=== PATIENT | male | born 1950 | race Caucasian/White ===

== ENCOUNTER 2019-09-18 07:44 | Outpatient (CLI) | payer MEDICARE, OTHER ==
[2019-09-18 17:47] LABS: SARS-CoV-2 MS2 Positive; SARS-CoV-2 N Gene Negative; SARS-CoV-2 S Gene Negative; SARS-CoV-2 orf1ab Negative
== END 2019-09-18 07:45 | disposition home or self-care (01) ==
LOC: LABBT 07:44
PROVIDERS: ATTEND Ophthalmology Retina Specialist
DX: Z01.812 Encounter for preprocedural laboratory examination (principal); Z11.59 Encounter for screening for other viral diseases; H35.371 Puckering of macula, right eye
CPT/HCPCS: 87635; U0003

== ENCOUNTER 2019-09-20 07:11 | Day surgery (SDC) | payer MEDICARE, OTHER ==
[2019-09-18 12:32] VITALS: BMI 32.8
[~2019-09-20 07:11] MED LIST: Fluorouracil 100 MG, Enoxaparin Sodium 25 MG, EPINEPHrine 0.3 MG in Ophthalmic Irrigati... IRR SCH
[2019-09-20] MEDS ORDERED: Phenylephrine 2.5% Ophth Soln 5 ML BOT FS SCH (08:44)
[2019-09-20] MEDS ORDERED: Cyclopentolate 1% Opth Drop 2 ML BOT FS SCH (08:44)
[2019-09-20] MEDS ORDERED: Cyclopentolate 1% Opth Drop 2 ML BOT ONE (08:58)
[2019-09-20] MEDS ORDERED: Phenylephrine 2.5% Ophth Soln 5 ML BOT ONE (08:58)
[2019-09-20] MEDS ORDERED: PROPOFOL 20 ML ONE (10:55)
[2019-09-20] MEDS ORDERED: Fentanyl 100 MCG/2 ML VIAL ONE (10:55)
[2019-09-20] MEDS ORDERED: Midazolam HCl 2 mg/2 ml Vial ONE (10:57)
[2019-09-20] MEDS ORDERED: Lidocaine 1% PF 5 ML VIAL ONE ×2 (13:30)
[2019-09-20] MEDS ORDERED: PROPOFOL 200 MG/20 ML VIAL ONE (13:30)
[2019-09-20] MEDS ORDERED: Triamcinolone 40 MG/ML VIAL ONE (13:30)
[2019-09-20] MEDS ORDERED: Tobramycin/Dexamethasone Ophth Oint 3.5 GM TUBE ONE (13:30)
[2019-09-20] MEDS ORDERED: CEFAZOLIN 1 GM VIAL ONE (13:30)
[2019-09-20] MEDS ORDERED: Enoxaparin Sodium 30 MG/0.3 ML SYRINGE ONE (13:30)
--- NOTE | 2019-09-20 23:16 | OP ---
DATE OF PROCEDURE: 09/20/2019 PREOPERATIVE DIAGNOSIS: Epiretinal membrane, right eye. POSTOPERATIVE DIAGNOSIS: Epiretinal membrane, right eye. PROCEDURES PERFORMED: Pars plana vitrectomy and membrane peel, right eye. ANESTHESIA: Local with monitored anesthesia care. DESCRIPTION OF PROCEDURE: The patient was identified in the preoperative holding area. Appropriate informed consent for the planned surgical procedure on the right eye had been obtained. The patient was transported to the operative suite. Appropriate cardiopulmonary monitoring was established. The patient was prepped and draped in usual sterile manner for ophthalmic surgery in the right eye. Lid speculum was placed in the right eye. A 27-gauge trocars was placed supratemporally, inferotemporally, and supranasally. Infusion line was placed inferotemporally. Light pipe vitreous cutter inserted to the eye. Core vitrectomy was performed. All the edge of the epiretinal membrane was identified. This was elevated using end gripping forceps and peeled across the macula without complication. The periphery was inspected with indirect ophthalmoscopy and 7 to 8 spots of laser was placed in the periphery. Trocars removed. Eye was noted to retain pressure well. Retrobulbar Kenalog subconjunctival Ancef was placed. Antibiotic ointment was placed. Eye was patched and shielded. The patient was taken to the postop recovery unit in good condition, having suffered no immediate perioperative complications. The patient was instructed to keep patch shield on, avoid lifting or bending. Followup appointment with Dr. Negron. Job ID: [id number]
== END 2019-09-20 12:22 | disposition home or self-care (01) ==
LOC: SDC 07:11
PROVIDERS: ATTEND Ophthalmology Retina Specialist
PROC: 08T43ZZ Resection of Right Vitreous, Percutaneous Approach (ICD-10-PCS; principal; 2019-09-20)
PROC: 08NE3ZZ Release Right Retina, Percutaneous Approach (ICD-10-PCS; 2019-09-20)
DX: H35.371 Puckering of macula, right eye (principal); I10 Essential (primary) hypertension; E78.5 Hyperlipidemia, unspecified; E11.9 Type 2 diabetes mellitus without complications; Z79.4 Long term (current) use of insulin; Z79.82 Long term (current) use of aspirin; Z79.899 Other long term (current) drug therapy
CPT/HCPCS: 36416; J0171; J1650; J2250; J2704; J3010; J9190

== ENCOUNTER 2019-11-03 18:41 | Observation (INO) | payer MEDICARE, OTHER ==
--- NOTE | 2019-11-03 19:41 | CT ---
CT OF THE HEAD WITHOUT CONTRAST: 11/03/19 COMPARISON: None. HISTORY: Dizziness, right sided weakness. TECHNIQUE: Axial CT imaging at 5 mm intervals from vertex through skull base without contrast. FINDINGS: The imaged paranasal sinuses and mastoid air cells are well aerated. There is no displaced calvarial fracture. There is mild diffuse cerebral volume loss with associated prominence of the CSF containing spaces. T here is a probable small medial left frontal arachnoid cyst measuring approximately 1.4 cm in transve rse dimension. No intracranial hemorrhage, midline shift, or mass effect noted. IMPRESSION: No acute findings. If there is clinical concern for recent infarction, brain MRI advised. POS: [facility]
[2019-11-03 20:03] LABS: #Basophils 0.1 thou/uL (0.0-0.2); #Eosinphils 0.4 thou/uL (0.0-0.7); #Lymphocytes 2.4 thou/uL (1.20-3.40); #Monocytes 0.6 thou/uL (0.11-0.59); #Neutrophils 3.9 thou/uL (1.40-6.50); %Basophils 1.1 % (0.0-1.0); %Eosinophils 4.8 % (0.0-10.0); %Monocytes 8.3 % (0.0-10.0); %Neutrophils 52.7 % (42.0-75.0); Hemoglobin 14.7 g/dL (14.0-18.0); Mean Corpuscular HGB CONC 33.6 g/dL (32.0-36.0); Mean Corpuscular Hemoglobin 32.4 pg (27.0-31.0); Mean Corpuscular Volume 96.3 fL (78.0-98.0); Mean Platelet Volume 7.7 fL (7.4-10.4); Platelet Count 249 thou/uL (130-400); RBC Distribution Width 12.1 % (11.5-14.5); Red Blood Cell (RBC) Count 4.55 mill/uL (4.70-6.10); White Blood Cell (WBC) Count 7.4 thou/uL (4.8-10.8)
[2019-11-03 20:26] LABS: ALT (SGPT) 27 U/L (8-55); AST (SGOT) 18 U/L (5-34); Albumin 4.3 g/dL (3.4-4.8); Alkaline Phosphatase 84 U/L (40-110); Anion Gap 13 mmol/L (10-20); BUN (Urea Nitrogen) 30 mg/dL (8.4-25.7); Bilirubin, Total 0.4 mg/dL (0.2-1.2); Calc. Creatinine Clearance 0 mL/min (70-130); Calcium 9.1 mg/dL (7.8-10.44); Carbon Dioxide 22 mmol/L (23-31); Chloride 106 mmol/L (98-107); Estimated GFR-MDRD 45; Globulin 2.8 g/dL (2.4-3.5); Glucose 156 mg/dL (80-115); Potassium 5.3 mmol/L (3.5-5.1); Protein, Total 7.1 g/dL (5.8-8.1); Sodium 136 mmol/L (136-145)
[2019-11-03 20:44] LABS: CKMB 2.2 ng/mL (0-6.6)
[2019-11-03 21:02] LABS: Bacteria/HPF None Seen HPF (None Seen); Bilirubin Negative (Negative); Blood, Urine Negative (Negative); Clarity Clear (Clear); Glucose, Urine (Dipstick) 200 mg/dL (Negative); Ketone, Urine Negative (Negative); Leukocyte Negative Leu/uL (Negative); Nitrite Negative (Negative); Protein, Urine (Dipstick) 30 mg/dL (Neg-Trace); RBC/HPF 0-3 HPF (0-3); Specific Gravity, Urine 1.009 (1.002-1.036); Squamous Epithelial 0-3 HPF (0-3); Urobilinogen Normal mg/dL (Less than 2); WBC/HPF 0-3 HPF (0-3); pH, Urine 5.5 (5.0-9.0)
[2019-11-03] MEDS ORDERED: Aspirin Chewable 81 MG TAB ONE (21:41)
--- NOTE | 2019-11-03 21:58 | RAD ---
FRONTAL RADIOGRAPH CHEST: 11/03/19 COMPARISON: None. HISTORY: Dizziness and weakness. FINDINGS: There is mild perihilar and bibasilar interstitial prominence, nonspecific and of uncertain chronicit y given lack of comparison imaging. There is atherosclerotic calcification in the aortic arch. Cardi ac silhouette is mildly prominent. No focal consolidation, or alveolar edema. IMPRESSION: Nonspecific interstitial prominence as detailed above. POS: [facility]
[2019-11-03] MEDS ORDERED: hydrALAZINE 20 MG/ML VIAL SLOW IVP PRN (22:18)
[2019-11-03] MEDS ORDERED: HumaLOG 300 UNITS/3 ML VIAL SC PRN (22:22)
[2019-11-03] MEDS ORDERED: Dextrose 5% in Water 1,000 ML IV PRN (22:22)
[2019-11-03] MEDS ORDERED: Dextrose 50% Abboject 50 ML SYRINGE SLOW IVP PRN (22:22)
--- NOTE | 2019-11-03 22:57 | HP ---
REASON FOR ADMISSION: Right-sided weakness. HISTORY OF PRESENT ILLNESS: This is a 69-year-old male patient presenting with right-sided weakness that started two days ago. The weakness involved the upper and lower extremity. The patient denies chest pain. Denies shortness of breath. He tells me that recently his blood pressure has been out of control and his primary care physician did add another blood pressure medication to his regimen. The patient does not have any visual changes. No headaches. No nausea. No vomiting. No diarrhea. PAST MEDICAL HISTORY: 1. High blood pressure. 2. Diabetes. 3. High cholesterol. SOCIAL HISTORY: He drinks socially. Does not smoke. FAMILY HISTORY: Reviewed, found to be noncontributory. ALLERGIES: NO NOTE OF ANY DRUG ALLERGY. REVIEW OF SYSTEMS: All systems reviewed except the above mentioned, found to be negative. PHYSICAL EXAMINATION: GENERAL: Awake, alert, oriented, does not appear in distress. VITAL SIGNS: His blood pressure is 190/80, his heart rate is 60, temperature is 98 degrees, and saturating 97% on room air. HEENT: Head is nontraumatic and normocephalic. Pupils are equal and reactive. Extraocular movements are intact. Nonicteric sclerae. Well injected conjunctivae. Oral mucosa normal. Nasal mucosa normal. NECK: Supple. No adenopathy. No murmur. Thyroid is not palpable. Trachea is midline. No supraclavicular adenopathy. HEART: S1 and S2 regular. No murmur. No gallops. No friction rubs. No displacement of PMI. LUNGS: Clear to auscultation bilaterally. No wheezes, rhonchi, or crackles. ABDOMEN: Bowel sounds are positive. Nontender abdomen. No hepatosplenomegaly. EXTREMITIES: No lower extremity edema. No cyanosis. NEUROLOGIC: Cranial nerves 2 through 12 within normal limits. He does have motor deficit in the right upper and right lower extremity. He is able to lift his extremities against resistance, but not to the extent that he is able to do that on the left side. LABORATORY DATA: Blood work shows WBC 7.4, hemoglobin 14.7, platelets of 249. Sodium 136, potassium 5.3, bicarb 22, creatinine 1.53, previous creatinine 1.61. CT of the head shows no acute finding. Chest x-ray shows nonspecific interstitial prominence. ASSESSMENT AND PLAN: This is a 69-year-old male patient presenting with right-sided weakness, seems that he had a stroke. His blood pressure is very high as well, he does have chronic kidney disease, he does have indeterminate troponin, but does not have any chest pain. Neuro: The patient will be admitted for stroke workup. We will do an MRI, echocardiogram, carotid Doppler in the morning. He will be on aspirin. We will practice permissive hypertension. We will provide him with IV hydralazine on as-needed basis if his systolic goes above 220. For his chronic kidney disease, we will continue to monitor his kidney function and his potassium. Cardiac: The patient does have indeterminate troponin, this could be due to his increased blood pressure and demand ischemia. We will continue cycling his cardiac enzymes. He will be on telemetry. For his diabetes, he will be on insulin sliding scale. For DVT prophylaxis, he will be on heparin subcutaneously. I did discuss with him his code status, he wishes to be a full code. Job ID: [id number]
[2019-11-03 23:53] LABS: Troponin I 0.033 ng/mL (< 0.028)
[2019-11-04 02:21] LABS: #Basophils 0.1 thou/uL (0.0-0.2); #Eosinphils 0.3 thou/uL (0.0-0.7); #Lymphocytes 2.4 thou/uL (1.20-3.40); #Monocytes 0.5 thou/uL (0.11-0.59); #Neutrophils 3.1 thou/uL (1.40-6.50); %Eosinophils 5.3 % (0.0-10.0); %Lymphocytes 37.4 % (21.0-51.0); %Monocytes 8.4 % (0.0-10.0); %Neutrophils 47.9 % (42.0-75.0); Hemoglobin 14.2 g/dL (14.0-18.0); Mean Corpuscular HGB CONC 33.8 g/dL (32.0-36.0); Mean Corpuscular Hemoglobin 32.8 pg (27.0-31.0); Mean Platelet Volume 7.6 fL (7.4-10.4); Platelet Count 228 thou/uL (130-400); RBC Distribution Width 12.2 % (11.5-14.5); Red Blood Cell (RBC) Count 4.34 mill/uL (4.70-6.10); White Blood Cell (WBC) Count 6.5 thou/uL (4.8-10.8)
[2019-11-04 02:45] LABS: Anion Gap 10 mmol/L (10-20); BUN (Urea Nitrogen) 25 mg/dL (8.4-25.7); Calc. Creatinine Clearance 0 mL/min (70-130); Calcium 8.6 mg/dL (7.8-10.44); Carbon Dioxide 22 mmol/L (23-31); Cardiac Risk 3.3 (Less than 4.5); Chloride 110 mmol/L (98-107); Cholesterol 166 mg/dl (< 200 Desired); Estimated GFR-MDRD 58; Glucose 112 mg/dL (80-115); HDL Cholesterol 50 mg/dL (>60 Neg Risk); LDL Cholesterol, Calculated 83 mg/dL; Potassium 4.8 mmol/L (3.5-5.1); Sodium 137 mmol/L (136-145); Triglycerides 167 mg/dL (Less than 150)
[2019-11-04] MEDS ORDERED: Aspirin 81 mg Enteric Coated Tablet PO SCH (09:00)
[2019-11-04] MEDS ORDERED: Heparin 5,000 UNITS/ML VIAL SC SCH (09:00)
== END 2019-11-04 03:10 | disposition short-term general hospital (02) ==
LOC: ERS 18:41 → ERHOLD 22:02
PROVIDERS: ADMIT Internal Medicine; ATTEND Internal Medicine
DX: R53.1 Weakness (principal); R42 Dizziness and giddiness; I12.9 Hypertensive chronic kidney disease with stage 1 through stage 4 chronic kidney disease, or unspecified chronic kidney disease; E11.22 Type 2 diabetes mellitus with diabetic chronic kidney disease; N18.9 Chronic kidney disease, unspecified; E78.00 Pure hypercholesterolemia, unspecified
CPT/HCPCS: 36415; 70450; 71045; 80048; 80053; 80061; 81003; 81015; 82553; 84484; 85025; 93005; 96360; 96361; G0378